=== PATIENT | female | born 1995 | race African-American/Black ===

== ENCOUNTER 2019-09-15 09:22 | Emergency (ER) | payer OTHER ==
[~2019-09-15] VITALS: Ht 152.4 cm; Wt 47.6 kg
[2019-09-15 09:25] VITALS: BP 126/72
--- NOTE | 2019-09-15 09:30 | NUR ---
ED Nurse Note: Patient WILLIAM from friend's house after overdosing on intravenous Fentanyl. Patient states she does not remember what happened, she lost consciousness and woke up on the ambulance. Per EMS, patient was given 2 mg Narcan intranasally. Patient currently AxO x 4, awake and alert, able to verbalize needs. Dr. Chavez at bedside. Addendum: 09/15/19 at 0946 by OSWALDO ED Nurse Note: Patient vomited clear fluid at bedside. Emesis bag given. VSS, patient lying in bed, on the laboratory monitor, bed in lowest position.
--- NOTE | 2019-09-15 09:32 | NUR ---
ED Nurse Note: called windmill technician.
[2019-09-15] MEDS ORDERED: MIRTAZAPINE30 MG ORAL (09:34)
[2019-09-15] MEDS ORDERED: ZYPREXA5 MG ORAL (09:34)
[2019-09-15] MEDS ORDERED: GABAPENTIN300 MG ORAL (09:34)
--- NOTE | 2019-09-15 09:40 | NUR ---
ED Nurse Note: Zofran ODT given to patient.
--- NOTE | 2019-09-15 09:42 | NUR ---
ED Nurse Note: giancarlo evangelista at the .
--- NOTE | 2019-09-15 09:46 | NUR ---
ED Nurse Note: Xray at bedside.
--- NOTE | 2019-09-15 11:05 | NUR ---
HAND-OFF: Report given to Rosaura MOSS.
--- NOTE | 2019-09-15 11:23 | Emergency Room Report ---
History of Present Illness General Chief Complaint: Overdose Source: Patient Present Illness HPI Patient presents by paramedics with reported fentanyl overdose upon arrival the patient is awake and alert she had received Narcan by paramedics Patient reports that she feels cold otherwise denies any headache denies any chest pain She does report that she last overdosed about 2 months ago Denies any focal weakness denies any visual changes patient is requesting to eat and rest Allergies: Coded Allergies: No Known Allergies (Unverified , 09/15/19) COVID-19 Screening Contact w/high risk pt: No Recent Travel to affected area: No Experienced COVID-19 symptoms?: No Patient History Past Medical History: see triage record Now: No Reviewed Nursing Documentation: PMH: Agreed; PSxH: Agreed Nursing Documentation-PMH Past Medical History: No History, Except For Review of Systems All Other Systems: negative except mentioned in HPI Physical Exam Vital Signs Date Time Temp Pulse Resp B/P (MAP) Pulse Ox O2 Delivery O2 Flow Rate FiO2 09/15/19 09:23 98.1 122 20 126/72 (90) 98 Room Air Sp02 EP Interpretation: reviewed, normal General Appearance: well appearing, no apparent distress - However mildly disheveled Head: normocephalic, atraumatic Eyes: bilateral eye PERRL, bilateral eye EOMI ENT: hearing grossly normal, normal pharynx, TMs + canals normal, uvula midline Neck: full range of motion, supple, no meningismus, no bony tend Respiratory: lungs clear, normal breath sounds, no rhonchi, no respiratory distress, no retraction, no accessory muscle use Cardiovascular #1: normal peripheral pulses, regular rate, rhythm, no edema, no gallop, no JVD, no murmur Gastrointestinal: normal bowel sounds, non tender, soft, no mass, no organomegaly, non-distended, no guarding, no hernia, no pulsatile mass, no rebound Genitourinary: no CVA tenderness Musculoskeletal: normal inspection Neurologic: motor strength/tone normal, grinder lap III-XII nml as tested, oriented x3 , sensory intact, responsive Psychiatric: mood/affect normal Skin: no rash Lymphatic: normal inspection, no adenopathy Procedures Critical Care Time Critical Care Time 40 minutes for multiple re-evaluations initial critical presentation concern for continued overdose and respiratory failure not including any procedural time Medical Decision Making Diagnostic Impression: Primary Impression: Drug overdose ER Course Multiple differentials including but not limited to aspiration pneumonia, overdose on multiple medications, respiratory compromise metabolic disorder, entertained After several minutes of presentation patient is awake and alert she is speaking clearly does report taking methamphetamines as well on top of the fentanyl Patient reports that she did overdose about 2 months ago as well X-ray does not show any acute process patient remains on cardiac monitoring and heart rate has continued to improve patient taking oral intake patient's brother has arrived and I spoke with him as well He is aware of the situation and feels comfortable taking the patient home she was written a prescription for Narcan Rhythm Strip Diag. Results EP Interpretation: yes Rate: 92 Rhythm: NSR, no PVC's, no ectopy Chest X-Ray Diagnostic Results Chest X-Ray Diagnostic Results : Chest X-Ray Ordered: Yes # of Views/Limited/Complete: 1 View Indication: Chest Pain EP Interpretation: Yes Interpretation: no consolidation, no effusion, no pneumothorax Impression: No acute disease Electronically Signed by: Rachael Chavez DO Last Vital Signs Date Time Temp Pulse Resp B/P (MAP) Pulse Ox O2 Delivery O2 Flow Rate FiO2 09/15/19 09:25 98.1 122 20 126/72 98 Room Air Status: improved Disposition: HOME, SELF-CARE Condition: Improved Scripts Naloxone HCl (Narcan) 4 Mg Branch 4 MG NS PRN, #3 SPRAY Prov: Rachael Chavez DO 09/15/19 Referrals: Pantera KERR,REFERRING (PCP) Additional Instructions: Patient is provided with the discharge instructions notified to follow up with primary doctor in the next 2-3 days otherwise return to the er with any worsening symptoms. Please note that this report is being documented using [employer] technology. This can lead to erroneous entry secondary to incorrect interpretation by the dictating instrument. Rachael Chavez DO September 15, 2019 11:23
--- NOTE | 2019-09-15 12:00 | NUR ---
ED Nurse Note: Patient awake, AAO x4, VSS at this time, O2 sat 100% on RA, patient was able to ambulate to bathroom with steady gait.
[2019-09-15] MEDS ORDERED: NARCAN4 MG NS (12:06)
[2019-09-15 12:10] VITALS: BP 126/72
--- NOTE | 2019-09-15 12:15 | NUR ---
ED Nurse Note: Pt cleared by health care Provider for discharge. DC instructions/prescription was given and explained to pt and verbalized understanding of teachings. All medical deviecs such as ID band removed. Pt is AAO x4, ambulatory and left with all personal belongings.
--- NOTE | 2019-09-15 12:25 | Diagnostic Imaging Report ---
Indication: Chest pain Technique: One view of the chest Comparison: none Findings: Lungs and pleural spaces are clear. The heart size is normal. Spinal fusion rods are noted. Metallic densities project over the upper lobes bilaterally. There is a right cervical rib incidentally noted. Impression: No acute process Incidental finding of right cervical rib
== END 2019-09-15 12:15 | disposition home or self-care (01) ==
LOC: EDBD 09:22 → EMR 09:40
DX: T40.4X1A Poisoning by other synthetic narcotics, accidental (unintentional), initial encounter (principal); X58.XXXA Exposure to other specified factors, initial encounter; Y92.9 Unspecified place or not applicable
CPT/HCPCS: 71045; Z7502; 99283